=== PATIENT | male | born 1965 ===

== ENCOUNTER 2018-09-30 13:25 | Inpatient (IN) | payer MEDICAID, OTHER ==
[2018-09-30 13:47] VITALS: BMI 34.4
--- NOTE | 2018-09-30 14:02 | C.PDOC ---
History Of Present Illness 52 y/o male with a PMHx of HTN sent by PMD for worsening dyspnea and weakness for the last few days. Patient was found to be in new onset A Fib. He does report chest pain. Otherwise patient denies any fevers, chills, or URI symptoms. Patient is a poor historian. Time Seen by Provider: 09/30/18 13:57 Chief Complaint (Nursing): Chest Pain History Per: Patient History/Exam Limitations: no limitations Onset/Duration Of Symptoms: Days Current Symptoms Are (Timing): Still Present Associated Symptoms: Dyspnea Past Medical History Reviewed: Historical Data, Nursing Documentation, Vital Signs Vital Signs: Last Vital Signs Temp 98.3 F 09/30/18 13:47 Pulse 116 H 09/30/18 13:47 Resp 20 09/30/18 13:47 BP 127/80 09/30/18 13:47 Pulse Ox 100 09/30/18 13:47 Family History: States: No Known Family Hx Review Of Systems Constitutional: Positive for: Weakness (generalized). Negative for: Fever, Chills Cardiovascular: Positive for: Chest Pain Respiratory: Positive for: Shortness of Breath, SOB with Excertion. Negative for: Cough Gastrointestinal: Negative for: Nausea, Vomiting, Diarrhea Neurological: Negative for: Numbness, Change in Speech, Headache Physical Exam - Physical Exam Appears: Non-toxic, No Acute Distress Skin: Warm, Dry Head: Atraumatic, Normacephalic Eye(s): bilateral: Normal Inspection, PERRL, EOMI Oral Mucosa: Moist Neck: Normal ROM, Supple Chest: Symmetrical Cardiovascular: Rhythm Irregular (Irregularly irregular) Respiratory: Decreased Breath Sounds (diminished at the bases bilaterally) Gastrointestinal/Abdominal: Soft, No Tenderness, No Distention Extremity: Bilateral: Atraumatic, Normal Color And Temperature, Normal ROM Pulses: Left Radial: Normal, Right Radial: Normal Neurological/Psych: Oriented x3 ED Course And Treatment - Laboratory Results Result Diagrams: 09/30/18 14:24 09/30/18 14:24 ECG: Interpreted By Me, Viewed By Me ECG Rhythm: Atrial Fibrillation Rate From EC O2 Sat by Pulse Oximetry: 100 (RA) Pulse Ox Interpretation: Normal Medical Decision Making Medical Decision Making: Impression: New-onset A Fib, work-up and likely admission Plan: --CMP --Pro-BNP --Troponin I --CBC --PTT/PT --UA --Chest x-ray --EKG --Cardizem 10 mg IVP --Reassess case discussed with dr hannah. s/p carizem rate upper 90s. cxr neg. trop neg. asa lovenox given. accpted tele. Disposition - Disposition Disposition: HOSPITALIZED Disposition Time: 19:20 Condition: STABLE - Clinical Impression Clinical Impression: Atrial fibrillation with RVR - Scribe Statement The provider has reviewed the documentation as recorded by the Scribe (Sary Abel) Provider Attestation: All medical record entries made by the Scribe were at my direction and personally dictated by me. I have reviewed the chart and agree that the record accurately reflects my personal performance of the history, physical exam, medical decision making, and the department course for this patient. I have also personally directed, reviewed, and agree with the discharge instructions and disposition.
[2018-09-30 14:36] LABS: BASO % 0.7 % (0.0-2.0); EOS # 0.1 K/uL (0.0-0.7); EOS % 1.1 % (0.0-4.0); LYMPH # 2.1 K/uL (1.0-4.3); LYMPH % 38.5 % (20.0-40.0); MEAN CELL VOLUME 80.5 fL (80.0-94.0); MEAN CORPUSCULAR HEMOGLOBIN 26.3 pg (27.0-31.0); MEAN CORPUSCULAR HGB CONC 32.7 g/dL (33.0-37.0); MEAN PLATELET VOLUME 7.6 fL (7.2-11.7); MONO # 0.5 K/uL (0.0-0.8); MONO % 8.3 % (0.0-10.0); NEUT # 2.8 K/uL (1.8-7.0); NEUT % 51.4 % (50.0-75.0); NRBC % 0.1 % (0.0-2.0); RBC 5.32 Mil/uL (4.40-5.90); RED CELL DISTRIBUTION WIDTH 14.7 % (11.5-14.5); WHITE BLOOD COUNT 5.4 K/uL (4.8-10.8)
[2018-09-30 14:37] LABS: INR 1.1; PROTHROMBIN TIME 12.3 SECONDS (9.7-12.2)
[2018-09-30 14:44] LABS: ALB/GLOB RATIO 1.4 (1.0-2.1); ALT/SGPT 28 U/L (21-72); AST/SGOT 21 U/L (17-59); BLOOD UREA NITROGEN 16 mg/dL (9-20); GFR NON-AFRICAN AMERICAN > 60
--- NOTE | 2018-09-30 14:46 | RAD ---
Date of service: 09/30/2018 HISTORY: Chest pain COMPARISON: None available. FINDINGS: LUNGS: Poor inspiration with low lung volumes, crowded bronchovascular markings and minor bibasilar atelectasis. PLEURA: No significant pleural effusion identified, no pneumothorax apparent. CARDIOVASCULAR: No tubal aortic atherosclerotic calcification identified Normal cardiac size. No pulmonary vascular congestion. OSSEOUS STRUCTURES: No significant abnormalities. VISUALIZED UPPER ABDOMEN: Normal. OTHER FINDINGS: None. IMPRESSION: Poor inspiration with low lung volumes, crowded bronchovascular markings and minor bibasilar atelectasis.
[2018-09-30 14:53] LABS: B-TYPE NATRIURETIC PEPTIDE 725 pg/mL (0-900)
[2018-09-30] MEDS ORDERED: Enoxaparin 150 mg Syringe SC STA (15:01)
[2018-09-30] MEDS ORDERED: Enoxaparin 100 mg Syringe ONE (15:27)
[2018-09-30 15:47] LABS: URINE BILIRUBIN NEGATIVE (NEGATIVE); URINE BLOOD 1+ (NEGATIVE); URINE CLARITY Clear (Clear); URINE COLOR Straw (YELLOW); URINE GLUCOSE (UA) NORMAL (Normal); URINE LEUKOCYTE ESTERASE NEG Leu/uL (Negative); URINE PROTEIN NEGATIVE (NEGATIVE); URINE UROBILINOGEN NORMAL mg/dL (0.2-1.0)
[2018-09-30] MEDS ORDERED: Digoxin 500 mcg/2ml (0.5 mg/2ml) Inj IVP ONE (16:59)
[2018-09-30 17:48] LABS: BARBITURATES, UR NEGATIVE (NEGATIVE); BENZODIAZEPINES, UR NEGATIVE (NEGATIVE); OPIATES, UR NEGATIVE (NEGATIVE); PHENCYCLIDINE, UR NEGATIVE (NEGATIVE)
[2018-09-30] MEDS ORDERED: Iodixanol 320 MG/ML 100 ML BOTTLE IV ONE (17:50)
[2018-09-30 18:19] VITALS: PULSE 104
--- NOTE | 2018-09-30 18:22 | CP.PCM.HP ---
<Aditi Vega - Last Filed: 09/30/18 18:09> History of Present Illness - History of Present Illness History of Present Illness: cc: "Dr. Rosado said so." Mr. Song is a 52 year old male PMH hypertension who comes to [facility] after PMD referral for 4 days of chest pain with shortness of breath and dizziness on exertion. Patient has become increasingly short of breath lately, citing he needs to rest the half a block it takes to walk from his home to his car. He felt a flutter and palpitation start in his chest 4 days ago, but due to work obligations and his lack of insurance, he did not visit the doctor until today. He has an associated pounding headache that recedes as he rests. The midsternal pressure reaches 8/10 at its worst, but is usually at a 4/10 when he stops to catch his breath. He does not currently feel any chest pain at rest or difficulty breathing. He is able to fully recline comfortably. Denies fever, chills, edema, numbness, tingling, incontinence, blurry vision, double vision. ED EKG found him in Afib. He was given ASA 325, Cardizem 10, and Lovenox 100. PMD: [facility] PMH: HTN Meds: amlodipine 10mg po daily All: NKDA FamHx: Mother-[place]@60 SocHx: denies ever tobacco, alcohol, illicit drugs. 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 absent: Chills, Fever, Night Sweats, Sleep Apnea - EENT Eyes: absent: Blurred Vision, Diplopia Ears: absent: Decreased Hearing, Tinnitus Nose/Mouth/Throat: absent: Nasal Congestion, Nasal Obstruction, Dysphagia, Odynophagia, Sore Throat - Cardiovascular Cardiovascular: Chest Pain with Activity, Dyspnea on Exertion, Irregular Heart Rhythm, Lightheadedness, Palpitations, Rapid Heart Rate. absent: Chest Pain at Rest, Claudication, Diaphoresis, Edema, Pain Radiating to Arm/Neck/Jaw, Leg Edema, Leg Ulcers, Orthopnea, Pedal Edema, Radiating Pain, Syncope - Respiratory Respiratory: Dyspnea on Exertion. absent: Cough, Dyspnea, Hemoptysis, Chest Congestion - Gastrointestinal Gastrointestinal: absent: Abdominal Pain, Constipation, Diarrhea, Dysphagia, Heartburn, Nausea, Vomiting - Genitourinary Genitourinary: absent: Urinary Incontinence, Urinary Frequency, Urinary Hesitance, Urinary Urgency - Musculoskeletal Musculoskeletal: Abnormal Gait, Myalgias. absent: Numbness, Tingling - Integumentary Integumentary: absent: Change in Hair, Dry Skin - Neurological Neurological: Abnormal Movements, Disequilibrium, Dizziness, Weakness. absent: Numbness, Loss of Vision, Paresthesias, Tingling - Psychiatric Psychiatric: absent: Anxiety, Depression, Irritability, Mood Swings, Panic Attacks - Endocrine Endocrine: Fatigue. absent: Flushing - Hematologic/Lymphatic Hematologic: absent: Easy Bleeding, Easy Bruising Past Patient History - Past Medical History & Family History Pertinent Family History: Mother: [place] in 60s - Past Social History Smoking Status: Never Smoked Alcohol: None Drugs: Denies - CARDIAC Hx Hypertension: Yes - PSYCHIATRIC Hx Substance Use: No Meds Allergies/Adverse Reactions: Allergies Allergy/AdvReac Type Severity Reaction Status Date / Time No Known Allergies Allergy Verified 09/30/18 13:45 Physical Exam - Constitutional Appears: Well, No Acute Distress - Head Exam Head Exam: ATRAUMATIC, NORMOCEPHALIC - Eye Exam Eye Exam: EOMI, Normal appearance, PERRL. absent: Scleral icterus Pupil Exam: NORMAL ACCOMODATION - ENT Exam ENT Exam: Mucous Membranes Moist, Normal Exam - Respiratory Exam Respiratory Exam: Clear to Auscultation Bilateral, NORMAL BREATHING PATTERN. absent: Accessory Muscle Use, Rales, Rhonchi, Wheezes - Cardiovascular Exam Cardiovascular Exam: Irregular Rhythm, +S1, +S2. absent: JVD, Systolic Murmur Additional comments: irregularly irregular - GI/Abdominal Exam GI & Abdominal Exam: Normal Bowel Sounds, Soft. absent: Distended, Firm, Guarding, Tenderness - Extremities Exam Extremities exam: Positive for: normal capillary refill, pedal pulses present. Negative for: calf tenderness, pedal edema Additional comments: warm to touch, pink peripheral pulses palpable bilaterally (radial, PT) IV access in L AC - Back Exam Back exam: absent: CVA tenderness (L), CVA tenderness (R), rash noted - Neurological Exam Neurological exam: Alert, CN II-XII Intact, Normal Gait, Oriented x3, Reflexes Normal - Psychiatric Exam Psychiatric exam: Normal Affect, Normal Mood - Skin Skin Exam: Dry, Intact, Normal Color, Warm Results - Vital Signs Recent Vital Signs: Last Vital Signs Temp 97.9 F 09/30/18 16:33 Pulse 101 H 09/30/18 16:33 Resp 13 09/30/18 16:33 BP 97/73 L 09/30/18 16:33 Pulse Ox 97 09/30/18 16:33 - Labs Result Diagrams: 09/30/18 14:24 09/30/18 14:24 Labs: Laboratory Results - last 24 hr 09/30/18 09/30/18 09/30/18 14:24 14:24 14:24 WBC 5.4 RBC 5.32 Hgb 14.0 Hct 42.8 MCV 80.5 MCH 26.3 L MCHC 32.7 L RDW 14.7 H Plt Count 239 MPV 7.6 Neut % (Auto) 51.4 Lymph % (Auto) 38.5 Anson % (Auto) 8.3 Eos % (Auto) 1.1 Baso % (Auto) 0.7 Neut # (Auto) 2.8 Lymph # (Auto) 2.1 Anson # (Auto) 0.5 Eos # (Auto) 0.1 Baso # (Auto) 0.0 PT 12.3 H INR 1.1 APTT 37 H Sodium 140 Potassium 3.8 Chloride 104 Carbon Dioxide 24 Anion Gap 16 BUN 16 Creatinine 1.0 Est GFR ( Amer) > 60 Est GFR (Non-Af Amer) > 60 Random Glucose 86 Calcium 8.0 L Total Bilirubin 0.3 AST 21 ALT 28 Alkaline Phosphatase 71 Troponin I < 0.0120 NT-Pro-B Natriuret Pep 725 Total Protein 6.8 Albumin 4.0 Globulin 2.9 Albumin/Globulin Ratio 1.4 Urine Color Urine Clarity Urine pH Ur Specific Schuyler Urine Protein Urine Glucose (UA) Urine Ketones Urine Blood Urine Nitrate Urine Bilirubin Urine Urobilinogen Ur Leukocyte Esterase Urine WBC (Auto) Urine RBC (Auto) Urine Opiates Screen Urine Methadone Screen Ur Barbiturates Screen Ur Phencyclidine Scrn Ur Amphetamines Screen U Benzodiazepines Scrn U Oth Cocaine Metabols U Cannabinoids Screen 09/30/18 09/30/18 15:27 17:05 WBC RBC Hgb Hct MCV MCH MCHC RDW Plt Count MPV Neut % (Auto) Lymph % (Auto) Anson % (Auto) Eos % (Auto) Baso % (Auto) Neut # (Auto) Lymph # (Auto) Anson # (Auto) Eos # (Auto) Baso # (Auto) PT INR APTT Sodium Potassium Chloride Carbon Dioxide Anion Gap BUN Creatinine Est GFR ( Amer) Est GFR (Non-Af Amer) Random Glucose Calcium Total Bilirubin AST ALT Alkaline Phosphatase Troponin I NT-Pro-B Natriuret Pep Total Protein Albumin Globulin Albumin/Globulin Ratio Urine Color Straw Urine Clarity Clear Urine pH 6.0 Ur Specific Schuyler 1.012 Urine Protein Negative Urine Glucose (UA) Normal Urine Ketones Negative Urine Blood 1+ H Urine Nitrate Negative Urine Bilirubin Negative Urine Urobilinogen Normal Ur Leukocyte Esterase Neg Urine WBC (Auto) < 1 Urine RBC (Auto) 2 Urine Opiates Screen Negative Urine Methadone Screen Negative Ur Barbiturates Screen Negative Ur Phencyclidine Scrn Negative Ur Amphetamines Screen Negative U Benzodiazepines Scrn Negative U Oth Cocaine Metabols Negative U Cannabinoids Screen Negative Assessment & Plan - Assessment and Plan (Free Text) Assessment: 52yo M PMH HTN admitted for new onset Afib. Plan: New Onset Afib - CXR (09/30): poor inspiration with low lung volumes, crowded bronchovascular markings and minor bibasilar atelectasis. - EKG shows Afib @ 128 - Trop neg x1. f/u Trop and EKGs x2 @ 2000, 0200 - BNP 725 - UA neg, UDS neg - Given ASA 325, Cardizem 10, Lovenox 100 in ED - Digoxin 0.125mg IVP once - hold home Amlodipine 10mg po daily for low BP - f/u CTA (PE protocol) r/o PE - f/u ECHO - f/u CXR PA/L - f/u lipid panel, Hgb A1c, TSH - PT/OT - consider Eliquis vs. Coumadin AC therapy for d/c - ASA 81mg po daily - Cardizem 30mg po bid - Lovenox 100mg sc q12 Hypertension - hold home Amlodipine - monitor vitals PPx DVT: Lovenox 100mg sc q12 GI: not indicated Diet: HHD d/w Dr.Pham Aditi Vega PGY-1 - Date & Time Date: 09/30/18 Time: 16:45 <BhaktaMartínez mccabe H - Last Filed: 10/01/18 07:43> Results - Vital Signs Recent Vital Signs: Last Vital Signs Temp 97.8 F 09/30/18 20:56 Pulse 92 H 09/30/18 23:45 Resp 20 09/30/18 20:56 BP 120/87 09/30/18 20:56 Pulse Ox 95 09/30/18 20:56 - Labs Result Diagrams: 09/30/18 14:24 09/30/18 14:24 Labs: Laboratory Results - last 24 hr 09/30/18 09/30/18 09/30/18 14:24 14:24 14:24 WBC 5.4 RBC 5.32 Hgb 14.0 Hct 42.8 MCV 80.5 MCH 26.3 L MCHC 32.7 L RDW 14.7 H Plt Count 239 MPV 7.6 Neut % (Auto) 51.4 Lymph % (Auto) 38.5 Anson % (Auto) 8.3 Eos % (Auto) 1.1 Baso % (Auto) 0.7 Neut # (Auto) 2.8 Lymph # (Auto) 2.1 Anson # (Auto) 0.5 Eos # (Auto) 0.1 Baso # (Auto) 0.0 PT 12.3 H INR 1.1 APTT 37 H Sodium 140 Potassium 3.8 Chloride 104 Carbon Dioxide 24 Anion Gap 16 BUN 16 Creatinine 1.0 Est GFR ( Amer) > 60 Est GFR (Non-Af Amer) > 60 Random Glucose 86 Calcium 8.0 L Total Bilirubin 0.3 AST 21 ALT 28 Alkaline Phosphatase 71 Total Creatine Kinase CK-MB (Mass) Troponin I < 0.0120 NT-Pro-B Natriuret Pep 725 Total Protein 6.8 Albumin 4.0 Globulin 2.9 Albumin/Globulin Ratio 1.4 Urine Color Urine Clarity Urine pH Ur Specific Schuyler Urine Protein Urine Glucose (UA) Urine Ketones Urine Blood Urine Nitrate Urine Bilirubin Urine Urobilinogen Ur Leukocyte Esterase Urine WBC (Auto) Urine RBC (Auto) Urine Opiates Screen Urine Methadone Screen Ur Barbiturates Screen Ur Phencyclidine Scrn Ur Amphetamines Screen U Benzodiazepines Scrn U Oth Cocaine Metabols U Cannabinoids Screen 09/30/18 09/30/18 09/30/18 15:27 17:05 20:08 WBC RBC Hgb Hct MCV MCH MCHC RDW Plt Count MPV Neut % (Auto) Lymph % (Auto) Anson % (Auto) Eos % (Auto) Baso % (Auto) Neut # (Auto) Lymph # (Auto) Anson # (Auto) Eos # (Auto) Baso # (Auto) PT INR APTT Sodium Potassium Chloride Carbon Dioxide Anion Gap BUN Creatinine Est GFR ( Amer) Est GFR (Non-Af Amer) Random Glucose Calcium Total Bilirubin AST ALT Alkaline Phosphatase Total Creatine Kinase 152 CK-MB (Mass) 0.62 Troponin I < 0.0120 NT-Pro-B Natriuret Pep Total Protein Albumin Globulin Albumin/Globulin Ratio Urine Color Straw Urine Clarity Clear Urine pH 6.0 Ur Specific Schuyler 1.012 Urine Protein Negative Urine Glucose (UA) Normal Urine Ketones Negative Urine Blood 1+ H Urine Nitrate Negative Urine Bilirubin Negative Urine Urobilinogen Normal Ur Leukocyte Esterase Neg Urine WBC (Auto) < 1 Urine RBC (Auto) 2 Urine Opiates Screen Negative Urine Methadone Screen Negative Ur Barbiturates Screen Negative Ur Phencyclidine Scrn Negative Ur Amphetamines Screen Negative U Benzodiazepines Scrn Negative U Oth Cocaine Metabols Negative U Cannabinoids Screen Negative 10/01/18 02:16 WBC RBC Hgb Hct MCV MCH MCHC RDW Plt Count MPV Neut % (Auto) Lymph % (Auto) Anson % (Auto) Eos % (Auto) Baso % (Auto) Neut # (Auto) Lymph # (Auto) Anson # (Auto) Eos # (Auto) Baso # (Auto) PT INR APTT Sodium Potassium Chloride Carbon Dioxide Anion Gap BUN Creatinine Est GFR ( Amer) Est GFR (Non-Af Amer) Random Glucose Calcium Total Bilirubin AST ALT Alkaline Phosphatase Total Creatine Kinase 112 CK-MB (Mass) 0.51 Troponin I < 0.0120 NT-Pro-B Natriuret Pep Total Protein Albumin Globulin Albumin/Globulin Ratio Urine Color Urine Clarity Urine pH Ur Specific Schuyler Urine Protein Urine Glucose (UA) Urine Ketones Urine Blood Urine Nitrate Urine Bilirubin Urine Urobilinogen Ur Leukocyte Esterase Urine WBC (Auto) Urine RBC (Auto) Urine Opiates Screen Urine Methadone Screen Ur Barbiturates Screen Ur Phencyclidine Scrn Ur Amphetamines Screen U Benzodiazepines Scrn U Oth Cocaine Metabols U Cannabinoids Screen Attending/Attestation - Attestation I have personally seen and examined this patient.: Yes I have fully participated in the care of the patient.: Yes I have reviewed all pertinent clinical information: Yes Notes (Text): 10/01/18 07:39 Medical attending: Patient was seen and examined by me. Agree with the above note by the resident The patient's EKG show that he was in atrial fibrillation - this appears new for him as he tells us he has never had this condition before in the past In the ER the HR was in the 130s and this decreased with IV cardizem. The Blood pressure was slightly low so at this time will only do cardizem 30 PO BID and also digoxin 0.125 x1 for the time being Once the UDS returns we can decide if he should get a BB or not Also will need a 2 decho as well as cardiac enzymes overnight The patient was already given lovenox SC and we added ordered for this to be BID starting tommorow. We explained to the patient he will need to be on some form of oral anticoagulation when he leaves [facility]
[2018-09-30 20:41] LABS: CK-MB 0.62 ng/mL (0.0-3.38)
[2018-10-01 02:47] LABS: CK-MB 0.51 ng/mL (0.0-3.38)
--- NOTE | 2018-10-01 07:48 | CP.PCM.PN ---
<VegaAditi - Last Filed: 10/01/18 16:19> Subjective - Date & Time of Evaluation Date of Evaluation: 10/01/18 Time of Evaluation: 10:00 - Subjective Subjective: PGY-1 Medicine Progress Note for Dr. Krissy Owens Patient was seen and examined at bedside this morning. Patient had no acute event overnight per nurse and is resting comfortably in bed. He claims that his symptoms have improved. He admits that he still feels dizzy but otherwise denies any fever, chills, nausea, vomiting, chest pain, shortness of breath, abdominal pain, dysuria, or leg swelling. Objective - Vital Signs/Intake and Output Vital Signs (last 24 hours): Temp Pulse Resp BP Pulse Ox 97.8 F 92 H 20 120/87 95 09/30/18 20:56 09/30/18 23:45 09/30/18 20:56 09/30/18 20:56 09/30/18 20:56 - Medications Medications: Current Medications Aspirin (Aspirin Chewable) 81 mg PO DAILY [facility] Diltiazem HCl (Cardizem) 30 mg PO BID [facility] Last Admin: 09/30/18 18:19 Dose: 30 mg Enoxaparin Sodium (Lovenox) 100 mg SC Q12H [facility] Pneumococcal Polyvalent Vaccine (Pneumovax 23 Vaccine) 0.5 ml IM .ONCE ONE Stop: 10/03/18 10:01 - Labs Labs: 09/30/18 14:24 09/30/18 14:24 PT 12.3 SECONDS (9.7-12.2) H 09/30/18 14:24 INR 1.1 09/30/18 14:24 APTT 37 SECONDS (21-34) H 09/30/18 14:24 - Constitutional Appears: Well, No Acute Distress - Head Exam Head Exam: ATRAUMATIC, NORMOCEPHALIC - Respiratory Exam Respiratory Exam: Clear to Ausculation Bilateral, NORMAL BREATHING PATTERN. absent: Accessory Muscle Use, Rales, Rhonchi, Wheezes - Cardiovascular Exam Cardiovascular Exam: Irregular Rhythm, +S1, +S2 Additional comments: irregularly irregular - GI/Abdominal Exam GI & Abdominal Exam: Soft, Normal Bowel Sounds. absent: Distended, Tenderness - Extremities Exam Extremities Exam: Normal Inspection. absent: Calf Tenderness Additional comments: peripheral pulses palpable bilaterally (radial, DP) IV access in L arm - Neurological Exam Neurological Exam: Alert, Awake, CN II-XII Intact, Oriented x3 - Psychiatric Exam Psychiatric exam: Normal Affect, Normal Mood - Skin Skin Exam: Normal Color, Warm Assessment and Plan - Assessment and Plan (Free Text) Assessment: 52yo M PMH HTN admitted for new onset Afib. Plan: New Onset Afib with RVR - CXR (09/30): poor inspiration with low lung volumes, crowded bronchovascular markings and minor bibasilar atelectasis. - EKG shows Afib @ 128 on admission - Trop neg x3. EKGs and exam show continued afib in the low 100s, going as high as 120 - BNP 725 - UA neg, UDS neg - Given ASA 325, Cardizem 10, Lovenox 100 in ED - Digoxin 0.125mg IVP once - hold home Amlodipine 10mg po daily for low BP - CTA (PE protocol) (09/30): negative - ECHO (10/01): LVEF 65-70%. Trace mitral regurg, mild pulmonary hypertension - f/u CXR PA/L - Lipid panel: TG 115 Chol 189 LDL 130 HDL 42 - Hgb A1c 6.0 - TSH 1.68 - PT/OT - CHADs 2 Vasc: 1, Has-BLED: 0 : further AC not indicated for Afib - ASA 81mg po daily - Cardizem 30mg po qid - Lovenox 100mg sc q12 - Cardio consulted: Dr. Harp - recs appreciated Hypertension - hold home Amlodipine - monitor vitals PPx DVT: Lovenox 100mg sc q12 GI: not indicated Diet: HHD Dispo: pending rate control, resting HR <100. On ASA 81 and Cardizem 30 qid d/w Dr. Krissy Vega PGY-1 <Jean Paul Owens - Last Filed: 10/04/18 20:03> Objective - Vital Signs/Intake and Output Vital Signs (last 24 hours): Temp Pulse Resp BP Pulse Ox 97.2 F L 90 20 110/77 97 10/03/18 08:07 10/03/18 12:00 10/03/18 08:07 10/03/18 09:41 10/03/18 08:07 - Labs Labs: 10/03/18 08:55 10/03/18 08:55 PT 12.3 SECONDS (9.7-12.2) H 09/30/18 14:24 INR 1.1 09/30/18 14:24 APTT 37 SECONDS (21-34) H 09/30/18 14:24 Attending/Attestation - Attestation I have personally seen and examined this patient.: Yes I have fully participated in the care of the patient.: Yes I have reviewed all pertinent clinical information, including history, physical exam and plan: Yes Notes (Text): 10/04/18 20:02 This is a late entry. Care of this patient was gone over in detail with resident Discussed care also with War[facility] Clam[facility] Dr. Harp on 10/01/18 after my exam and recommended increase to Cardizem to 4x/day and order was placed. Jean Paul Owens D.O.
[2018-10-01 07:50] LABS: ALB/GLOB RATIO 1.3 (1.0-2.1); ALBUMIN 3.9 g/dL (3.5-5.0); ALT/SGPT 31 U/L (21-72); AST/SGOT 20 U/L (17-59); BLOOD UREA NITROGEN 15 mg/dL (9-20); CALCIUM 8.7 mg/dl (8.6-10.4); GFR NON-AFRICAN AMERICAN > 60; HDL CHOLESTEROL 42 mg/dL (30-70)
[2018-10-01 07:51] LABS: BASO % 0.9 % (0.0-2.0); EOS # 0.1 K/uL (0.0-0.7); EOS % 1.1 % (0.0-4.0); HEMOGLOBIN 14.2 g/dL (12.0-18.0); LYMPH # 1.8 K/uL (1.0-4.3); MEAN CELL VOLUME 80.3 fL (80.0-94.0); MEAN CORPUSCULAR HEMOGLOBIN 27.1 pg (27.0-31.0); MEAN CORPUSCULAR HGB CONC 33.8 g/dL (33.0-37.0); MEAN PLATELET VOLUME 7.8 fL (7.2-11.7); MONO # 0.4 K/uL (0.0-0.8); MONO % 8.2 % (0.0-10.0); NEUT # 2.4 K/uL (1.8-7.0); NEUT % 50.8 % (50.0-75.0); RBC 5.23 Mil/uL (4.40-5.90); WHITE BLOOD COUNT 4.7 K/uL (4.8-10.8)
[2018-10-01 08:01] LABS: LDL CHOLESTEROL 130 mg/dL (0-129)
[2018-10-01] MEDS: Enoxaparin 100 mg Syringe SC SCH ×2 (11:19→21:27)
--- NOTE | 2018-10-01 11:46 | CARD ---
APPROVED REPORT Date of service: 10/01/2018 EXAM: Two-dimensional and M-mode echocardiogram with Doppler and color Doppler. Other Information Quality : GoodRhythm : INDICATION Dyspnea Chest Pain RISK FACTORS Hypertension 2D DIMENSIONS IVSd0.8 (0.7-1.1cm)Aortic Root (2D)3.1 (2.0-3.7cm) LVDd4.6 (3.9-5.9cm)PWd0.9 (0.7-1.1cm) LA [id number] (18-58mL)LVDs3.0 (2.5-4.0cm) FS (%) 34.0 %LVEF (%)63.0 (>50%) LVEF (Franklin's)60 %IVC0.00 cm M-Mode DIMENSIONS RVDd1.51 (2.1-3.2cm)Left Atrium (MM)3.13 (2.5-4.0cm) IVSd0.85 (0.7-1.1cm)Aortic Root2.95 (2.2-3.7cm) LVDd4.57 (4.0-5.6cm)Aortic Cusp Exc.1.66 (1.5-2.0cm) PWd0.92 (0.7-1.1cm)FS (%) 39 % LVDs2.80 (2.0-3.8cm)TAPSE14.45 cm LVEF (%)69 (>50%) Mitral Valve MV E Gpovvwoc15.8cm/sMV A Vepgbbsm25.9cm/sE/A ratio2.0 TDI Lateral E' Peak V12.16cm/sMedial E' Peak V6.87cm/sE/Lateral E'6.2 E/Medial E'10.9 Tricuspid Valve TR Peak [id number] Peak [id number] LEFT VENTRICLE The left ventricle is normal size. There is borderline left ventricular hypertrophy. Left ventricle systolic function is normal. The Ejection Fraction is 65-70%. There is normal LV segmental wall motion. The left ventricular diastolic function is normal. There is no ventricular septal defect visualized. RIGHT VENTRICLE The right ventricle is normal size. The right ventricular systolic function is normal. ATRIA The left atrium is mildly dilated. The right atrium size is normal. AORTIC VALVE The aortic valve is mildly sclerotic. The aortic valve is tri-cuspid. No aortic regurgitation is present. There is no aortic valvular stenosis. MITRAL VALVE The mitral valve is normal in structure. There is no evidence of mitral valve prolapse. Mitral regurgitation is trace. TRICUSPID VALVE The tricuspid valve is normal in structure. There is trace tricuspid regurgitation. Right ventricular systolic pressure is estimated at 30-40 mmHg. There is mild pulmonary hypertension. PULMONIC VALVE The pulmonic valve is not well visualized. There is trace pulmonic valvular regurgitation. GREAT VESSELS The aortic root is normal in size. The ascending aorta is normal in size. The IVC is normal in size and collapses >50% with inspiration. PERICARDIAL EFFUSION There is no pericardial effusion. <Conclusion> There is borderline left ventricular hypertrophy. Left ventricle systolic function is normal. The Ejection Fraction is 65-70%. The left ventricular diastolic function is normal. Mitral regurgitation is trace. There is mild pulmonary hypertension.
--- NOTE | 2018-10-01 12:28 | CARD ---
APPROVED REPORT Date of service: 09/30/2018 EKG Measurement Heart [id number] <Conclusion> Atrial fibrillation Minimal voltage criteria for LVH, may be normal variant Abnormal ECG
--- NOTE | 2018-10-01 12:28 | CARD ---
APPROVED REPORT Date of service: 09/30/2018 EKG Measurement Heart [id number] <Conclusion> Atrial fibrillation with rapid ventricular response Abnormal ECG
--- NOTE | 2018-10-01 12:58 | CT ---
Date of service: 09/30/2018 PROCEDURE: CT Chest with contrast (Pulmonary Angiogram) HISTORY: SOB COMPARISON: Comparison made with chest radiograph 09/30/2018. TECHNIQUE: Contiguous helical/transaxial computed tomography images were obtained of the chest in the pulmonary arterial phase of enhancement. Coronal and sagittal reformatted images were created and reviewed. Intravenous contrast dose: 100 cc Visipaque 320 Radiation dose: Total exam DLP = 547.61 mGy-cm. This CT exam was performed using one or more of the following dose reduction techniques: Automated exposure control, adjustment of the mA and/or kV according to patient size, and/or use of iterative reconstruction technique. FINDINGS: PULMONARY ARTERIES: U visualized pulmonary trunk, right and left main, lobar, segmental and proximal subsegmental branches of the pulmonary arteries are well opacified with no definitive filling defects seen to suggest acute central pulmonary embolus. The pulmonary trunk measures approximately 3 cm. AORTA: No acute findings. No thoracic aortic aneurysm. Ascending thoracic aorta measures approximately 3.5 cm and descending thoracic aorta measures approximately 2.7 cm. No significant aortic atherosclerotic calcification or mural plaque present. LUNGS: Mild passive/dependent type atelectasis seen in both posterior lower lung tong. No focal consolidation effusion or pneumothorax. PLEURAL SPACES: As above. HEART: Heart size is of borderline/mildly enlarged.. Questionable minimal of pericardial thickening versus trace amount of posterior pericardial fluid. LYMPH NODES: Few small nonspecific mediastinal lymph nodes are present. No significant hilar adenopathy. The trachea is midline with no obvious endoluminal lesions.. Small hiatal hernia. BONES, CHEST WALL: Mild multilevel degenerative spondylosis of the thoracic spine. OTHER FINDINGS: Unremarkable. IMPRESSION: No evidence of acute central pulmonary embolus.
--- NOTE | 2018-10-01 15:03 | RAD ---
Date of service: 10/01/2018 HISTORY: chest pain, SOB COMPARISON: September 30, 2018 TECHNIQUE: Chest PA and lateral FINDINGS: LUNGS: No active pulmonary disease. PLEURA: No significant pleural effusion identified. No pneumothorax apparent. CARDIOVASCULAR: No aortic atherosclerotic calcification present. No radiographic findings to suggest acute or significant cardiovascular disease. OSSEOUS STRUCTURES: No significant abnormalities. VISUALIZED UPPER ABDOMEN: Normal. OTHER FINDINGS: None. IMPRESSION: No active disease. No significant interval change compared to the prior examination(s).
--- NOTE | 2018-10-02 00:01 | CON ---
DATE: 10/01/2018 REASON FOR CONSULTATION: New onset atrial fibrillation. HISTORY OF PRESENT ILLNESS: The patient is a 52-year-old male who has a history of hypertension; was admitted because of shortness of breath, weakness, and at times, dizziness. The patient was found to be in atrial fibrillation. The patient is unaware of any prior cardiac history. SOCIAL HISTORY: The patient is nonsmoker, occasional drinker. He is currently unemployed. 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 MEDICATIONS: Aspirin 81 mg once a day, Lovenox 100 mg subcutaneous twice a day, Cardizem 30 mg twice a day. REVIEW OF SYSTEMS: The patient did experience diarrhea a week ago. He currently denies any abdominal pain, vomiting, or diarrhea. PHYSICAL EXAMINATION: GENERAL: The patient is a middle-aged male who does not appear to be in any distress. VITAL SIGNS: Blood pressure 114/82, heart rate 103, temperature 97.7, respirations 20. HEENT: Normocephalic. CHEST: Clear. HEART: S1, S2, regular. ABDOMEN: Soft. EXTREMITIES: No edema. LABORATORY DATA: Urine drug screen is negative. SMA-7 is within normal limits. As of yesterday, three sets of troponins are negative. Lipid profile is within normal limits except for LDL cholesterol of 130. TSH level is within normal limits. INR is 1.1. PTT 37. Yesterday's hemoglobin, hematocrit, white count, and platelet count are within normal limits. EKG revealed atrial fibrillation at rate of 88. Minimal voltage criteria for LVH. Echocardiography study revealed normal ejection fraction, trace mitral insufficiency and mild pulmonary hypertension. Chest x-ray: Poor inspirations with low lung volumes, crowded bronchovascular markings with minor bibasilar atelectasis. ASSESSMENT: New-onset atrial fibrillation. RECOMMENDATIONS: Continue current therapeutic subcutaneous Lovenox 100 mg twice a day, Cardizem 30 mg q.i.d., aspirin 81 mg once a day. I will follow chest CT angio that was performed today. In the meantime, I would request venous Doppler of the lower extremities. Syd Harp MD
[2018-10-02] MEDS ORDERED: Sodium Chloride 0.9% 1,000 ML IV ONE (00:03)
[2018-10-02] MEDS ORDERED: Sodium Chloride 0.9% 500 ML IV ONE (00:46)
[2018-10-02 07:44] VITALS: RESP 20
[2018-10-02 08:09] LABS: BASO % 0.9 % (0.0-2.0); EOS # 0.1 K/uL (0.0-0.7); EOS % 1.3 % (0.0-4.0); HEMOGLOBIN 13.5 g/dL (12.0-18.0); LYMPH % 41.3 % (20.0-40.0); MEAN CELL VOLUME 80.5 fL (80.0-94.0); MEAN CORPUSCULAR HEMOGLOBIN 26.8 pg (27.0-31.0); MEAN CORPUSCULAR HGB CONC 33.3 g/dL (33.0-37.0); MEAN PLATELET VOLUME 7.6 fL (7.2-11.7); MONO # 0.5 K/uL (0.0-0.8); MONO % 10.1 % (0.0-10.0); NEUT # 2.2 K/uL (1.8-7.0); NEUT % 46.4 % (50.0-75.0); NRBC % 0.1 % (0.0-2.0); RBC 5.03 Mil/uL (4.40-5.90); RED CELL DISTRIBUTION WIDTH 14.7 % (11.5-14.5); WHITE BLOOD COUNT 4.7 K/uL (4.8-10.8)
[2018-10-02 08:40] LABS: ALBUMIN 3.6 g/dL (3.5-5.0); BLOOD UREA NITROGEN 12 mg/dL (9-20); CALCIUM 8.3 mg/dl (8.6-10.4); GFR NON-AFRICAN AMERICAN > 60
[2018-10-02 08:41] LABS: ALB/GLOB RATIO 1.4 (1.0-2.1); ALT/SGPT 31 U/L (21-72); AST/SGOT 19 U/L (17-59)
[2018-10-02] MEDS ORDERED: Enoxaparin 100 mg Syringe SC SCH (10:00)
[2018-10-02] MEDS: Enoxaparin 100 mg Syringe SC SCH ×2 (10:30→21:16)
--- NOTE | 2018-10-02 12:53 | CARD ---
APPROVED REPORT Date of service: 10/01/2018 EKG Measurement Heart [id number] <Conclusion> Atrial fibrillation Abnormal ECG
--- NOTE | 2018-10-02 17:09 | CP.PCM.PN ---
Subjective - Date & Time of Evaluation Date of Evaluation: 10/02/18 Time of Evaluation: 15:00 - Subjective Subjective: PGY-1 Medicine Progress Note for Dr. Shrestha Patient was seen and examined today at bedside in no acute distress. Nurse reports no acute overnight events; patient remains in tachycardia overnight. Patient reports no clinic symptoms and improvement of his dizziness. He wants to leave. Denies chest pain, difficult breathing, abdominal pain, nausea, vomiting, constipation, diarrhea, leg swelling. Objective - Vital Signs/Intake and Output Vital Signs (last 24 hours): Temp Pulse Resp BP Pulse Ox 97.3 F L 87 20 135/97 H 96 10/02/18 16:14 10/02/18 16:14 10/02/18 16:14 10/02/18 16:14 10/02/18 16:14 Intake and Output: 10/02/18 10/02/18 06:59 18:59 Intake Total 1000 Balance 1000 - Medications Medications: Current Medications Aspirin (Aspirin Chewable) 81 mg PO DAILY [facility] Last Admin: 10/02/18 09:17 Dose: 81 mg Diltiazem HCl (Cardizem) 30 mg PO QID [facility] Last Admin: 10/02/18 14:25 Dose: Not Given Enoxaparin Sodium (Lovenox) 100 mg SC Q12 [facility] Last Admin: 10/02/18 10:30 Dose: 100 mg Pneumococcal Polyvalent Vaccine (Pneumovax 23 Vaccine) 0.5 ml IM .ONCE ONE Stop: 10/03/18 10:01 - Labs Labs: 10/02/18 07:57 10/02/18 07:57 PT 12.3 SECONDS (9.7-12.2) H 09/30/18 14:24 INR 1.1 09/30/18 14:24 APTT 37 SECONDS (21-34) H 09/30/18 14:24 - Constitutional Appears: Well, No Acute Distress - Head Exam Head Exam: ATRAUMATIC, NORMOCEPHALIC - Respiratory Exam Respiratory Exam: Clear to Ausculation Bilateral, NORMAL BREATHING PATTERN. absent: Rales, Rhonchi, Wheezes - Cardiovascular Exam Cardiovascular Exam: Irregular Rhythm, +S1, +S2 Additional comments: irregularly irregular - GI/Abdominal Exam GI & Abdominal Exam: Soft, Normal Bowel Sounds. absent: Distended, Tenderness - Extremities Exam Extremities Exam: Normal Capillary Refill. absent: Calf Tenderness, Pedal Edema Additional comments: peripheral pulses palpable bilaterally (radial, DP) IV access in L arm - Neurological Exam Neurological Exam: Alert, Awake, CN II-XII Intact, Oriented x3 - Psychiatric Exam Psychiatric exam: Normal Affect, Normal Mood - Skin Skin Exam: Dry, Intact, Normal Color, Warm Assessment and Plan - Assessment and Plan (Free Text) Assessment: 52yo M PMH HTN admitted for new onset Afib with RVR. Plan: New Onset Afib with RVR - CXR (09/30): poor inspiration with low lung volumes, crowded bronchovascular markings and minor bibasilar atelectasis. - EKG shows Afib @ 128 on admission - Trop neg x3. EKGs and exam show continued afib in the low 100s, going as high as 120 - BNP 725 - UA neg, UDS neg - Given ASA 325, Cardizem 10, Lovenox 100 in ED - Digoxin 0.125mg IVP once - hold home Amlodipine 10mg po daily for low BP - CTA (PE protocol) (09/30): negative - ECHO (10/01): LVEF 65-70%. Trace mitral regurg, mild pulmonary hypertension - CXR PA/L (10/01): no active disease - f/u Dopplers LE official read: prelim neg - Lipid panel: TG 115 Chol 189 LDL 130 HDL 42 - Hgb A1c 6.0 - TSH 1.68 - PT/OT - CHADs 2 Vasc: 1, Has-BLED: 0 : further AC not indicated for Afib - ASA 81mg po daily - Cardizem 30mg po qid - Lovenox 100mg sc q12 - Cardio consulted: Dr. Harp - reccarlos alberto appreciated Hypertension - hold home Amlodipine - monitor vitals PPx DVT: Lovenox 100mg sc q12 GI: not indicated Diet: HHD Dispo: pending rate control, resting HR <100. On ASA 81 and Cardizem 30 qid equivalent Cardizem 120 ER d/w Dr. Fady Vega PGY-1
--- NOTE | 2018-10-02 19:22 | PN ---
DATE: 10/02/2018 SUBJECTIVE: The patient denies any chest pain or shortness of breath. PHYSICAL EXAMINATION VITAL SIGNS: Blood pressure 112/77, heart rate 94, temperature 97.8, respirations 20. HEENT: Normocephalic. Chest: Clear. HEART: S1 and S2 regular. EXTREMITIES: No edema. LABORATORY DATA: Today's hemoglobin and hematocrit are 13.5 and 40.5, white count 4.7, platelet count 219,000. Today's SMA-7 is within normal limit except for anion gap of 9. Yesterday's TSH level was 1.68, within normal limit. Echocardiographic study revealed normal ejection fraction, normal diastolic function, mild pulmonary hypertension. Venous Doppler of the lower extremity was performed; the report is still pending. ASSESSMENT: New-onset atrial fibrillation. RECOMMENDATIONS: Case was discussed with Dr. Owens yesterday. Continue Cardizem 30 mg t.i.d. and aspirin 81 mg once a day with therapeutic subcutaneous Lovenox at 100 mg twice a day. I will follow venous Doppler of the lower extremity study. Syd Harp MD
[2018-10-03 08:08] VITALS: TEMP 97.2; O2SAT 97
[2018-10-03 09:03] LABS: BASO % 0.7 % (0.0-2.0); EOS # 0.1 K/uL (0.0-0.7); EOS % 1.3 % (0.0-4.0); HEMOGLOBIN 13.9 g/dL (12.0-18.0); LYMPH # 2.1 K/uL (1.0-4.3); MEAN CELL VOLUME 81.5 fL (80.0-94.0); MEAN CORPUSCULAR HEMOGLOBIN 26.4 pg (27.0-31.0); MEAN CORPUSCULAR HGB CONC 32.5 g/dL (33.0-37.0); MEAN PLATELET VOLUME 7.7 fL (7.2-11.7); MONO # 0.5 K/uL (0.0-0.8); MONO % 9.2 % (0.0-10.0); NEUT # 2.3 K/uL (1.8-7.0); NEUT % 45.8 % (50.0-75.0); NRBC % 0.1 % (0.0-2.0); RBC 5.25 Mil/uL (4.40-5.90); WHITE BLOOD COUNT 4.9 K/uL (4.8-10.8)
[2018-10-03 09:29] LABS: ALB/GLOB RATIO 1.3 (1.0-2.1); ALBUMIN 3.8 g/dL (3.5-5.0); ALT/SGPT 33 U/L (21-72); AST/SGOT 28 U/L (17-59); BLOOD UREA NITROGEN 13 mg/dL (9-20); CALCIUM 8.5 mg/dl (8.6-10.4); GFR NON-AFRICAN AMERICAN > 60
[2018-10-03 09:41] VITALS: BP 110/77
[2018-10-03] MEDS: Enoxaparin 100 mg Syringe SC SCH (09:42)
[2018-10-03] MEDS ORDERED: Pneumococcal 23-Valent Vaccine IM ONE (10:00)
[2018-10-03] MEDS ORDERED: diltiaZEM 120 mg/24 Hours CD Cap PO SCH (10:00)
[2018-10-03] MEDS ORDERED: Influenza Virus Vaccine 45 mcg/0.5 ml Syr (36 months - 7 yrs) IM ONE (11:48)
--- NOTE | 2018-10-03 11:49 | CP.PCM.DIS ---
<SilviaAditi Peter - Last Filed: 10/03/18 13:36> Provider - Provider Date of Admission: 09/30/18 15:38 Attending physician: Gertrude Khan DO Time Spent in preparation of Discharge (in minutes): 45 Diagnosis - Discharge Diagnosis (1) Atrial fibrillation with RVR Status: Acute Hospital Course - Lab Results Lab Results: Most Recent Lab Values WBC 4.9 K/uL (4.8-10.8) 10/03/18 08:55 RBC 5.25 Mil/uL (4.40-5.90) 10/03/18 08:55 Hgb 13.9 g/dL (12.0-18.0) 10/03/18 08:55 Hct 42.8 % (35.0-51.0) 10/03/18 08:55 MCV 81.5 fL (80.0-94.0) 10/03/18 08:55 MCH 26.4 pg (27.0-31.0) L 10/03/18 08:55 MCHC 32.5 g/dL (33.0-37.0) L 10/03/18 08:55 RDW 15.0 % (11.5-14.5) H 10/03/18 08:55 Plt Count 225 K/uL (130-400) 10/03/18 08:55 MPV 7.7 fL (7.2-11.7) 10/03/18 08:55 Neut % (Auto) 45.8 % (50.0-75.0) L 10/03/18 08:55 Lymph % (Auto) 43.0 % (20.0-40.0) H 10/03/18 08:55 [place] % (Auto) 9.2 % (0.0-10.0) 10/03/18 08:55 Eos % (Auto) 1.3 % (0.0-4.0) 10/03/18 08:55 Baso % (Auto) 0.7 % (0.0-2.0) 10/03/18 08:55 Neut # (Auto) 2.3 K/uL (1.8-7.0) 10/03/18 08:55 Lymph # (Auto) 2.1 K/uL (1.0-4.3) 10/03/18 08:55 [place] # (Auto) 0.5 K/uL (0.0-0.8) 10/03/18 08:55 Eos # (Auto) 0.1 K/uL (0.0-0.7) 10/03/18 08:55 Baso # (Auto) 0.0 K/uL (0.0-0.2) 10/03/18 08:55 PT 12.3 SECONDS (9.7-12.2) H 09/30/18 14:24 INR 1.1 09/30/18 14:24 APTT 37 SECONDS (21-34) H 09/30/18 14:24 Sodium 138 mmol/L (132-148) 10/03/18 08:55 Potassium 3.9 mmol/L (3.6-5.2) 10/03/18 08:55 Chloride 104 mmol/L (98-107) 10/03/18 08:55 Carbon Dioxide 28 mmol/L (22-30) 10/03/18 08:55 Anion Gap 10 (10-20) 10/03/18 08:55 BUN 13 mg/dL (9-20) 10/03/18 08:55 Creatinine 1.0 mg/dL (0.8-1.5) 10/03/18 08:55 Est GFR ( Amer) > 60 10/03/18 08:55 Est GFR (Non-Af Amer) > 60 10/03/18 08:55 Random Glucose 90 mg/dL (75-110) 10/03/18 08:55 Hemoglobin A1c 6.0 % (4.2-6.5) 10/01/18 07:23 Calcium 8.5 mg/dl (8.6-10.4) L 10/03/18 08:55 Phosphorus 3.0 mg/dL (2.5-4.5) 10/01/18 07:23 Magnesium 2.1 mg/dL (1.6-2.3) 10/01/18 07:23 Total Bilirubin 0.3 mg/dL (0.2-1.3) 10/03/18 08:55 AST 28 U/L (17-59) 10/03/18 08:55 ALT 33 U/L (21-72) 10/03/18 08:55 Alkaline Phosphatase 80 U/L (38-126) 10/03/18 08:55 Total Creatine Kinase 112 U/L (55-170) 10/01/18 02:16 CK-MB (Mass) 0.51 ng/mL (0.0-3.38) 10/01/18 02:16 Troponin I < 0.0120 ng/mL (0.00-0.120) 10/01/18 02:16 NT-Pro-B Natriuret Pep 725 pg/mL (0-900) 09/30/18 14:24 Total Protein 6.7 g/dL (6.3-8.3) 10/03/18 08:55 Albumin 3.8 g/dL (3.5-5.0) 10/03/18 08:55 Globulin 2.9 gm/dL (2.2-3.9) 10/03/18 08:55 Albumin/Globulin Ratio 1.3 (1.0-2.1) 10/03/18 08:55 Triglycerides 115 mg/dL (0-149) 10/01/18 07:23 Cholesterol 189 mg/dL (0-199) 10/01/18 07:23 LDL Cholesterol Direct 130 mg/dL (0-129) H 10/01/18 07:23 HDL Cholesterol 42 mg/dL (30-70) 10/01/18 07:23 TSH 3rd Generation 1.68 mIU/L (0.46-4.68) 10/01/18 07:23 Urine Color Straw (YELLOW) 09/30/18 15:27 Urine Clarity Clear (Clear) 09/30/18 15:27 Urine pH 6.0 (5.0-8.0) 09/30/18 15:27 Ur Specific [place] 1.012 (1.003-1.030) 09/30/18 15:27 Urine Protein Negative mg/dL (NEGATIVE) 09/30/18 15:27 Urine Glucose (UA) Normal mg/dL (Normal) 09/30/18 15:27 Urine Ketones Negative mg/dL (NEGATIVE) 09/30/18 15:27 Urine Blood 1+ (NEGATIVE) H 09/30/18 15:27 Urine Nitrate Negative (NEGATIVE) 09/30/18 15:27 Urine Bilirubin Negative (NEGATIVE) 09/30/18 15:27 Urine Urobilinogen Normal mg/dL (0.2-1.0) 09/30/18 15:27 Ur Leukocyte Esterase Neg Nila/uL (Negative) 09/30/18 15:27 Urine WBC (Auto) < 1 /hpf (0-5) 09/30/18 15:27 Urine RBC (Auto) 2 /hpf (0-3) 09/30/18 15:27 Urine Opiates Screen Negative (NEGATIVE) 09/30/18 17:05 Urine Methadone Screen Negative (NEGATIVE) 09/30/18 17:05 Ur Barbiturates Screen Negative (NEGATIVE) 09/30/18 17:05 Ur Phencyclidine Scrn Negative (NEGATIVE) 09/30/18 17:05 Ur Amphetamines Screen Negative (NEGATIVE) 09/30/18 17:05 U Benzodiazepines Scrn Negative (NEGATIVE) 09/30/18 17:05 U Oth Cocaine Metabols Negative (NEGATIVE) 09/30/18 17:05 U Cannabinoids Screen Negative (NEGATIVE) 09/30/18 17:05 - Hospital Course Hospital Course: Mr. Song is a 52 year old male PMH hypertension who comes to [facility] after PMD referral for 4 days of chest pain with shortness of breath and dizziness on exertion. Patient has become increasingly short of breath lately, citing he needs to rest the half a block it takes to walk from his home to his car. He felt a flutter and palpitation start in his chest 4 days ago, but due to work obligations and his lack of insurance, he did not visit the doctor until today. He has an associated pounding headache that recedes as he rests. The midsternal pressure reaches 8/10 at its worst, but is usually at a 4/10 when he stops to catch his breath. He does not currently feel any chest pain at rest or difficulty breathing. He is able to fully recline comfortably. Denies fever, chills, edema, numbness, tingling, incontinence, blurry vision, double vision. ED EKG found him in Afib. He was given ASA 325, Cardizem 10, and Lovenox 100. Patient was started on daily ASA and Lovenox. CXR one view and PA/L showed no active disease. CTA showed no PE. ECHO showed LVEF at 65-70%, normal LV systolic function, trace mitral regurgitation. LE Dopplers negative for DVT. Troponins were negative x3 for ACS. Bloodwork unremarkable for lipid panel, HgbA1c, TSH. Cardizem titrated up until HR<100. Cardio recommends against beta patricio for this admission. With a CHADs 2 Vasc score of 1 and Has-BLED of 0, patient needs only ASA for anticoagulation. Patient has not been tachycardic for 24 hours and is asymptomatic. Primary Diagnosis: New Onset Atrial Fibrillation with RVR Patient is clear for discharge per Dr. Khan. He is to STOP taking his home Amlodipine. It will drop his blood pressure too much if he takes it with his new medications. He should take the new medications as prescribed: Aspirin 81mg by mouth once a day Cardizem CD 120mg by mouth once a day The cardizem will control his blood pressure the way amlodipine used to, but it will also control his Afib, the abnormal rhythm his heart is in. The aspirin is also available over the counter if is script runs out. He is to follow up with his PMD within 1 week. If he no longer wishes to go to the [facility], he is welcome to come to the [facility] in the [facility]. If he wants an appointment sooner, he can go to the [facility] at [address] [place] [address]. He can call to make an appointment. His PMD will need to refill his medications and continue following his Afib, as well as refer him to a nursing home director. If he experiences symptoms again, please do not hesitate to come back to the ED. Plan was explained to the patient who understands and agrees. This is a summary of the hospital course. Please refer to the EMR for more details. - Date & Time of H&P Date of H&P: 10/03/18 Time of H&P: 11:50 Discharge Exam - Head Exam Head Exam: ATRAUMATIC, NORMOCEPHALIC - Eye Exam Eye Exam: EOMI, Normal appearance, PERRL - ENT Exam ENT Exam: Mucous Membranes Moist - Respiratory Exam Respiratory Exam: Clear to PA & Lateral, NORMAL BREATHING PATTERN. absent: Rales, Rhonchi, Wheezes - Cardiovascular Exam Cardiovascular Exam: Irregular Rhythm, +S1, +S2. absent: Gallop, Rubs, Systolic Murmur Additional comments: irregularly irregular - GI/Abdominal Exam GI & Abdominal Exam: Normal Bowel Sounds, Soft. absent: Firm, Guarding, Rebound, Tenderness - Extremities Exam Extremities exam: normal capillary refill, pedal pulses present Additional comments: IV access in L AC to be removed prior to discharge - Neurological Exam Neurological exam: Alert, CN II-XII Intact, Normal Gait, Oriented x3 - Psychiatric Exam Psychiatric exam: Normal Affect, Normal Mood - Skin Skin Exam: Dry, Intact, Normal Color, Warm Discharge Plan - Discharge Medications Prescriptions: RX: Aspirin [Aspirin Chewable] 81 mg PO DAILY #30 chew RX: diltiaZEM CD [Cardizem CD] 120 mg PO DAILY #30 cap - Follow Up Plan Condition: STABLE Disposition: HOME/ ROUTINE Instructions: Low Salt Diet, Controlling Your Blood Pressure Through Lifestyle, Aspirin, Diltiazem, Atrial Fibrillation (DC) Additional Instructions: Patient is clear for discharge per Dr. Khan. He is to STOP taking his home Amlodipine. It will drop his blood pressure too much if he takes it with his new medications. He should take the new medications as prescribed: Aspirin 81mg by mouth once a day Cardizem CD 120mg by mouth once a day The cardizem will control his blood pressure the way amlodipine used to, but it will also control his Afib, the abnormal rhythm his heart is in. The aspirin is also available over the counter if is script runs out. He is to follow up with his PMD within 1 week. If he no longer wishes to go to the [facility], he is welcome to come to the [facility] in the [facility]. If he wants an appointment sooner, he can go to the [facility] at [address] [place] [id number]. He can call to make an appointment. His PMD will need to refill his medications and continue following his Afib, as well as refer him to a nursing home director. If he experiences symptoms again, please do not hesitate to come back to the ED. Plan was exp lained to the patient who understands and agrees. El paciente est listo para el sam por Dr. Khan. l es para dejar de gael hendrickson casa Amlodipine. Disminuir hendrickson presin arterial demasiado si la duc con sin nuevos medicamentos. l debe gael los nuevos medicamentos segn lo prescrito: Aspirina 81 mg por va oral laurie vez al da. Cardizem CD 120 mg por va oral laurie vez al da. El cardizem controlar hendrickson presin sangunea casey vance hacerlo la amlodipina, reyna tambin controlar hendrickson Afib, el ritmo anormal en el que se encuentra hendrickson corazn. La aspirina tambin est disponible en el mostrador si se agota la secuencia de comandos. l va a seguir con hendrickson PMD dentro de 1 semana. Si ya no desea ir a la [facility], puede venir a la [facility] en el [facility]. Si quiere laurie antonia antes, puede [facility] [address] [place] [address]. Puede llamar al para hacer laurie antonia. Hendrickson PMD tendr que recargar sin med icamentos y continuar siguiendo hendrickson Afib, as casey referirlo a un cardilogo. Si vuelve a experimentar sntomas, no dude en volver a la domingo de urgencias. El plan fue explicado al paciente que entiende y est de acuerdo. Referrals: [facility] at [facility] [Outside] Clinical Quality Measures - CQM - Heart Failure AnticoagulationTherapy for Atrial Fibrillation/Atrialflutter: Yes <Gertrude Khan V - Last Filed: 10/03/18 23:45> Provider - Provider Date of Admission: 09/30/18 15:38 Attending physician: Gertrude Khan, Hospital Course - Lab Results Lab Results: Most Recent Lab Values WBC 4.9 K/uL (4.8-10.8) 10/03/18 08:55 RBC 5.25 Mil/uL (4.40-5.90) 10/03/18 08:55 Hgb 13.9 g/dL (12.0-18.0) 10/03/18 08:55 Hct 42.8 % (35.0-51.0) 10/03/18 08:55 MCV 81.5 fL (80.0-94.0) 10/03/18 08:55 MCH 26.4 pg (27.0-31.0) L 10/03/18 08:55 MCHC 32.5 g/dL (33.0-37.0) L 10/03/18 08:55 RDW 15.0 % (11.5-14.5) H 10/03/18 08:55 Plt Count 225 K/uL (130-400) 10/03/18 08:55 MPV 7.7 fL (7.2-11.7) 10/03/18 08:55 Neut % (Auto) 45.8 % (50.0-75.0) L 10/03/18 08:55 Lymph % (Auto) 43.0 % (20.0-40.0) H 10/03/18 08:55 [place] % (Auto) 9.2 % (0.0-10.0) 10/03/18 08:55 Eos % (Auto) 1.3 % (0.0-4.0) 10/03/18 08:55 Baso % (Auto) 0.7 % (0.0-2.0) 10/03/18 08:55 Neut # (Auto) 2.3 K/uL (1.8-7.0) 10/03/18 08:55 Lymph # (Auto) 2.1 K/uL (1.0-4.3) 10/03/18 08:55 [place] # (Auto) 0.5 K/uL (0.0-0.8) 10/03/18 08:55 Eos # (Auto) 0.1 K/uL (0.0-0.7) 10/03/18 08:55 Baso # (Auto) 0.0 K/uL (0.0-0.2) 10/03/18 08:55 PT 12.3 SECONDS (9.7-12.2) H 09/30/18 14:24 INR 1.1 09/30/18 14:24 APTT 37 SECONDS (21-34) H 09/30/18 14:24 Sodium 138 mmol/L (132-148) 10/03/18 08:55 Potassium 3.9 mmol/L (3.6-5.2) 10/03/18 08:55 Chloride 104 mmol/L (98-107) 10/03/18 08:55 Carbon Dioxide 28 mmol/L (22-30) 10/03/18 08:55 Anion Gap 10 (10-20) 10/03/18 08:55 BUN 13 mg/dL (9-20) 10/03/18 08:55 Creatinine 1.0 mg/dL (0.8-1.5) 10/03/18 08:55 Est GFR ( Amer) > 60 10/03/18 08:55 Est GFR (Non-Af Amer) > 60 10/03/18 08:55 Random Glucose 90 mg/dL (75-110) 10/03/18 08:55 Hemoglobin A1c 6.0 % (4.2-6.5) 10/01/18 07:23 Calcium 8.5 mg/dl (8.6-10.4) L 10/03/18 08:55 Phosphorus 3.0 mg/dL (2.5-4.5) 10/01/18 07:23 Magnesium 2.1 mg/dL (1.6-2.3) 10/01/18 07:23 Total Bilirubin 0.3 mg/dL (0.2-1.3) 10/03/18 08:55 AST 28 U/L (17-59) 10/03/18 08:55 ALT 33 U/L (21-72) 10/03/18 08:55 Alkaline Phosphatase 80 U/L (38-126) 10/03/18 08:55 Total Creatine Kinase 112 U/L (55-170) 10/01/18 02:16 CK-MB (Mass) 0.51 ng/mL (0.0-3.38) 10/01/18 02:16 Troponin I < 0.0120 ng/mL (0.00-0.120) 10/01/18 02:16 NT-Pro-B Natriuret Pep 725 pg/mL (0-900) 09/30/18 14:24 Total Protein 6.7 g/dL (6.3-8.3) 10/03/18 08:55 Albumin 3.8 g/dL (3.5-5.0) 10/03/18 08:55 Globulin 2.9 gm/dL (2.2-3.9) 10/03/18 08:55 Albumin/Globulin Ratio 1.3 (1.0-2.1) 10/03/18 08:55 Triglycerides 115 mg/dL (0-149) 10/01/18 07:23 Cholesterol 189 mg/dL (0-199) 10/01/18 07:23 LDL Cholesterol Direct 130 mg/dL (0-129) H 10/01/18 07:23 HDL Cholesterol 42 mg/dL (30-70) 10/01/18 07:23 TSH 3rd Generation 1.68 mIU/L (0.46-4.68) 10/01/18 07:23 Urine Color Straw (YELLOW) 09/30/18 15:27 Urine Clarity Clear (Clear) 09/30/18 15:27 Urine pH 6.0 (5.0-8.0) 09/30/18 15:27 Ur Specific [place] 1.012 (1.003-1.030) 09/30/18 15:27 Urine Protein Negative mg/dL (NEGATIVE) 09/30/18 15:27 Urine Glucose (UA) Normal mg/dL (Normal) 09/30/18 15:27 Urine Ketones Negative mg/dL (NEGATIVE) 09/30/18 15:27 Urine Blood 1+ (NEGATIVE) H 09/30/18 15:27 Urine Nitrate Negative (NEGATIVE) 09/30/18 15:27 Urine Bilirubin Negative (NEGATIVE) 09/30/18 15:27 Urine Urobilinogen Normal mg/dL (0.2-1.0) 09/30/18 15:27 Ur Leukocyte Esterase Neg Nila/uL (Negative) 09/30/18 15:27 Urine WBC (Auto) < 1 /hpf (0-5) 09/30/18 15:27 Urine RBC (Auto) 2 /hpf (0-3) 09/30/18 15:27 Urine Opiates Screen Negative (NEGATIVE) 09/30/18 17:05 Urine Methadone Screen Negative (NEGATIVE) 09/30/18 17:05 Ur Barbiturates Screen Negative (NEGATIVE) 09/30/18 17:05 Ur Phencyclidine Scrn Negative (NEGATIVE) 09/30/18 17:05 Ur Amphetamines Screen Negative (NEGATIVE) 09/30/18 17:05 U Benzodiazepines Scrn Negative (NEGATIVE) 09/30/18 17:05 U Oth Cocaine Metabols Negative (NEGATIVE) 09/30/18 17:05 U Cannabinoids Screen Negative (NEGATIVE) 09/30/18 17:05 Attending/Attestation - Attestation I have personally seen and examined this patient.: Yes I have fully participated in the care of the patient.: Yes I have reviewed all pertinent clinical information, including history, physical exam and plan: Yes Notes (Text): Patient seen, examined, and case discussed with day-time resident. patient seen this morning. Patient denies headache, denies chest pain, denies palpitations, denies abdominal pain, denies nausea, denies vomitting, denies bowel/urinary problems. Patient's heart rate controlled with Cardizem 120 CD daily and prophylactic aspirin 81mg Po daily. Explained to the patient that he has abnormal heart rhythm that can predispose him to stroke. He is recommended for baby aspirin. Patient understand he needs to stop his norvasc and continue Cardizem 120 CD daily for cover his abnormal heart rhythm. Patient's venous dopplers negative for DVT. Patient medically stable for discharge. 1) Aspirin 81mg Po daily once a daily (patient advised this is OTC medication) 2) Cardizem 120 CD once a daily (15 dollar per good rx in regards patient affordability) To stop norvasc on discharge. Discharge Diagnoses 1) New onset Atrial Fibrillation Atrial fibrillation RVR Assessment/Plan * thyroid normal * venous doppler negative for DVT * 1) Aspirin 81mg Po daily once a daily (patient advised this is OTC medication) * 2) Cardizem 120 CD once a daily (15 dollar per good rx in regards patient affordability)\ * patient seen and evaluated by cardiology during hospitalization * Rate controlled * Recommended to establish care at either [facility] or the [facility]; recommended for cardiology referral as outpatient 2) Hypertension Assessment/Plan * stop norvasc * cardzeim 120mg once daily 3) Prophylactic * ambulatory
--- NOTE | 2018-10-03 12:11 | VASCLAB ---
Date of service: 10/02/2018 PROCEDURE: Lower Extremity Venous Duplex Exam. HISTORY: Swelling, r/o DVT PRIORS: None. TECHNIQUE: Bilateral common femoral, femoral, popliteal and posterior tibial, peroneal and great saphenous veins were evaluated. Flow was assessed with color Doppler, compressibility, assessment of phasic flow and augmentation response. Report prepared by GLORIA Cash FINDINGS: RIGHT: 1. Common Femoral Vein: 1.1. Compressibility - Fully compressible: Thrombus - None : Flow - Phasic: Augmentation -Normal: Reflux - None. 2. Femoral Vein: 2.1. Compressibility - Fully compressible: Thrombus - None : Flow - Phasic: Augmentation -Normal: Reflux - None. 3. Popliteal Vein: 3.1. Compressibility - Fully compressible: Thrombus - None : Flow - Phasic: Augmentation -Normal: Reflux - None. 4. Posterior Tibial Vein: 4.1. Compressibility - Fully compressible: Thrombus - None: Flow - Phasic: Augmentation -Normal: Reflux - None. 5. Peroneal Vein: 5.1. Compressibility - Fully compressible: Thrombus - None: Flow - Phasic: Augmentation -Normal: Reflux - None. 6. Great Saphenous Vein: 6.1. Compressibility - Fully compressible: Thrombus - None: Flow - Phasic: Augmentation - Normal: Reflux - None. LEFT: 1. Common Femoral Vein: 1.1. Compressibility - Fully compressible: Thrombus - None: Flow - Phasic: Augmentation -Normal: Reflux - None. 2. Femoral Vein: 2.1. Compressibility - Fully compressible: Thrombus - None: Flow - Phasic: Augmentation -Normal: Reflux - None. 3. Popliteal Vein: 3.1. Compressibility - Fully compressible: Thrombus - None : Flow - Phasic: Augmentation -Normal: Reflux - None. 4. Posterior Tibial Vein: 4.1. Compressibility - Fully compressible: Thrombus - None: Flow - Phasic: Augmentation -Normal: Reflux - None. 5. Peroneal Vein: 5.1. Compressibility - Fully compressible: Thrombus - None: Flow - Phasic: Augmentation -Normal: Reflux - None. 6. Great Saphenous Vein: 6.1. Compressibility - Fully compressible: Thrombus - None: Flow - Phasic: Augmentation - Normal: Reflux - None. OTHER FINDINGS: Right: None significant. Left: None significant. IMPRESSION: Right: No evidence of deep or superficial vein thrombosis of the right lower extremity. Normal valve function noted of the right side. Left: No evidence of deep or superficial vein thrombosis of the left lower extremity. Normal valve function noted of the left side.
[2018-10-03 12:21] VITALS: PULSE 90
--- NOTE | 2018-10-03 13:33 | PN ---
DATE: 10/03/2018 SUBJECTIVE: The patient denies any dizziness or headache. He is in AFib with controlled ventricular response. PHYSICAL EXAMINATION: VITAL SIGNS: Blood pressure 110/77, heart rate 93, temperature 97.2, and respirations 20. HEENT: Normocephalic. CHEST: Clear. HEART: S1 and S2 regular. EXTREMITIES: No edema. LABORATORY DATA: Today's hemoglobin and hematocrit, white count, and platelet count are within normal limit. Today's SMA-7 is entirely within normal limit. Calcium is slightly low normal at 8.5. Venous Doppler of lower extremity official report is still pending. ASSESSMENT: New onset atrial fibrillation. RECOMMENDATIONS: Continue aspirin 81 mg once a day, Cardizem CD 120 mg once a day, and therapeutic subcutaneous Lovenox. Upon discharge, the patient can be maintained on aspirin if the venous Doppler of lower extremity official report is negative for DVT. The patient's risk of stroke without anticoagulation is considered to be very low. The patient will follow up in the clinic as per Dr. wOens and will be maintained on aspirin 81 mg once a day as well as Cardizem CD 120 mg once a day. Syd Harp MD
[2018-10-03] MEDS ORDERED: Influenza Vaccine 60 MCG/0.5 ML SYR (3 yr & up) IM ONE (14:00)
== END 2018-10-03 13:13 | disposition home or self-care (01) | DRG 201 ==
LOC: C.ER 13:25 → C.9E 15:38 → C.5S 19:56
PROVIDERS: ADMIT Hospitalist; ATTEND Hospitalist
DX: I48.91 Unspecified atrial fibrillation (principal); I27.20 Pulmonary hypertension, unspecified; I10 Essential (primary) hypertension